=== PATIENT | female | born 1995 | race Asian ===

== ENCOUNTER 2020-08-06 18:12 | Emergency (ER) | payer OTHER, SELFPAY ==
[2020-08-06 18:18] VITALS: BP 129/83; PULSE 84; RESP 14; TEMP 36; O2SAT 96; BMI 23.3
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
[2020-08-06] MEDS: KETOROLAC 60 MG/2 ML VIAL 30 MG IM (19:31)
== END 2020-08-06 19:55 | disposition home or self-care (01) ==
PROVIDERS: Emergency Provider Nurse Practitioner
DX: S13.4XXA Sprain of ligaments of cervical spine, initial encounter (principal); V89.2XXA Person injured in unspecified motor-vehicle accident, traffic, initial encounter
CPT/HCPCS: 96372; 99283; J1885